=== PATIENT | male | born 1975 | race African-American/Black ===

== ENCOUNTER 2019-10-19 06:42 | Emergency (ER) | payer BC ==
[2019-10-19 07:47] LABS: Basophils % 0.5 % (0-1.3); Hematocrit 43.1 % (39.6-49.0); MPV 8.2 fL (7.6-11.3); RBC Red Blood Cell Count 4.89 M/uL (4.33-5.43)
[2019-10-19 08:11] LABS: Albumin 4.3 g/dL (3.4-5.0); Bilirubin Direct 0.4 mg/dL (0-0.2); Bilirubin Total 1.8 mg/dL (0.2-1.0); Potassium 4.6 mmol/L (3.5-5.1); Protein, Total 8.3 g/dL (6.4-8.2)
--- NOTE | 2019-10-19 08:22 | EDPHYS ---
Physician Documentation [facility] Name: Eric Wall Age: 43 yrs Sex: Male : 1975 Arrival Date: 10/19/2019 Time: 06:45 Bed 5 Private MD: ED Physician Mckinley Wayne HPI: 10/18 07:01 This 43 yrs old Black Male presents to ER via Ambulatory with complaints of Abdominal kb Pain, Shortness Of Breath. 07:01 The patient presents with abdominal pain in the right upper quadrant. Onset: The kb symptoms/episode began/occurred yesterday. The symptoms do not radiate. Associated signs and symptoms: Pertinent positives: chest pain, Pertinent negatives: nausea, vomiting, and diarrhea, fever, palpitations, shortness of breath, testicular pain, vomiting, vomiting blood. The symptoms are described as constant. Modifying factors: The symptoms are alleviated by nothing, the symptoms are aggravated by breathing deeply, movement, pressure. Severity of pain: At its worst the pain was moderate in the emergency department the pain is unchanged. The patient has not experienced similar symptoms in the past. The patient has not recently seen a physician. Historical: - Allergies: 06:58 No Known Allergies; lp1 - Home Meds: 06:58 None [Active]; lp1 - PMHx: 06:58 Hypertension; lp1 - PSHx: 06:58 Neck surgery; lp1 - Immunization history:: Adult Immunizations up to date. - Social history:: Smoking status: Patient reports the use of cigarette tobacco products, smokes one pack cigarettes per day. ROS: 06:59 Constitutional: Negative for fever, chills, and weight loss, ENT: Negative for injury, kb pain, and discharge, Neck: Negative for injury, pain, and swelling, Respiratory: Negative for shortness of breath, cough, wheezing, and pleuritic chest pain, Back: Negative for injury and pain, : Negative for injury, bleeding, discharge, and swelling, MS/Extremity: Negative for injury and deformity, Skin: Negative for injury, rash, and discoloration, Neuro: Negative for headache, weakness, numbness, tingling, and seizure. 06:59 Cardiovascular: Positive for chest pain, with cough, with movement, of the right lower chest, Negative for edema, orthopnea, palpitations, paroxysmal nocturnal dyspnea. 06:59 Abdomen/GI: Positive for abdominal pain, Negative for nausea, vomiting, and diarrhea, constipation, abdominal cramps, abdominal distension. Exam: 07:00 Constitutional: This is a well developed, well nourished patient who is awake, alert, kb and in no acute distress. Head/Face: Normocephalic, atraumatic. Neck: Trachea midline, no thyromegaly or masses palpated, and no cervical lymphadenopathy. Supple, full range of motion without nuchal rigidity, or vertebral point tenderness. No Meningismus. Chest/axilla: Normal chest wall appearance and motion. Nontender with no deformity. No lesions are appreciated. Cardiovascular: Regular rate and rhythm with a normal S1 and S2. No gallops, murmurs, or rubs. Normal PMI, no JVD. No pulse deficits. Respiratory: Lungs have equal breath sounds bilaterally, clear to auscultation and percussion. No rales, rhonchi or wheezes noted. No increased work of breathing, no retractions or nasal flaring. Back: No spinal tenderness. No costovertebral tenderness. Full range of motion. Skin: Warm, dry with normal turgor. Normal color with no rashes, no lesions, and no evidence of cellulitis. MS/ Extremity: Pulses equal, no cyanosis. Neurovascular intact. Full, normal range of motion. Neuro: Awake and alert, GCS 15, oriented to person, place, time, and situation. Cranial nerves II-XII grossly intact. Motor strength 5/5 in all extremities. Sensory grossly intact. Cerebellar exam normal. Normal gait. 07:00 Abdomen/GI: Inspection: abdomen appears normal, Bowel sounds: normal, in all quadrants, Palpation: soft, in all quadrants, moderate abdominal tenderness, in the right upper quadrant. Vital Signs: 06:54 BP 149 / 101; Pulse 95; Resp 18; Temp 98.3(O); Pulse Ox 100% on R/A; Weight 88.45 kg lp1 (R); Height 6 ft. 6 in. (198.12 cm); Pain 8/10; 06:56 BP 149 / 101; Pulse 90; Resp 18; Pulse Ox 100% on R/A; ea 07:06 BP 143 / 100; Pulse 99; Resp 16; Pulse Ox 100% ; bp 08:51 BP 145 / 97; Pulse 92; Resp 16; Temp 98.5; Pulse Ox 100% ; bp 06:54 Body Mass Index 22.53 (88.45 kg, 198.12 cm) lp1 MDM: 06:48 Patient medically screened. kb 06:59 Data reviewed: vital signs, nurses notes. Data interpreted: Pulse oximetry: on room air kb is 100 %. Interpretation: normal. 08:18 Counseling: I had a detailed discussion with the patient and/or guardian regarding: the kb historical points, exam findings, and any diagnostic results supporting the discharge/admit diagnosis, lab results, radiology results, the need for outpatient follow up, a family practitioner, a community service organization director, to return to the emergency department if symptoms worsen or persist or if there are any questions or concerns that arise at home. 10/18 06:53 Order name: Basic Metabolic Panel; Complete Time: 08:13 kb 10/18 06:53 Order name: CBC with Diff; Complete Time: 07:58 kb 10/18 06:53 Order name: Hepatic Function; Complete Time: 08:13 kb 10/18 06:53 Order name: Lipase; Complete Time: 08:13 kb 10/18 06:53 Order name: US Abdomen Limited; Complete Time: 08:47 kb 10/18 06:53 Order name: Chest Pa And Lat (2 Views) XRAY; Complete Time: 08:47 kb 10/18 06:53 Order name: IV Saline Lock; Complete Time: 07:48 kb 10/18 06:53 Order name: Labs collected and sent; Complete Time: 07:48 kb Administered Medications: 08:30 Drug: TORadol - Ketorolac 15 mg Route: IVP; Site: right antecubital; bp 08:50 Follow up: Response: Pain is decreased bp Disposition: 10/19/19 08:21 Discharged to Home. Impression: Chest pain on breathing, Upper abdominal pain, unspecified. - Condition is Stable. - Discharge Instructions: Chest Wall Pain, [id number], Abdominal Pain, Adult, [id number]. - Prescriptions for Cyclobenzaprine 10 mg Oral Tablet - take 1 tablet by ORAL route every 8 hours As needed; 21 tablet. Diclofenac Sodium 75 mg Oral Tablet, Delayed Release (E.C.) - take 1 tablet by ORAL route 2 times per day As needed; 30 tablet. - Medication Reconciliation Form, Thank You Letter, Antibiotic Education, Prescription Opioid Use form. - Follow up: Emergency Department; When: As needed; Reason: Worsening of condition. Follow up: Private Physician; When: 2 - 3 days; Reason: Recheck today's complaints, Continuance of care, Re-evaluation by your physician. Signatures: Dispatcher [employer] EDTX Gabriella Boles, JAIDA-C [employer]-Ckb Ruth Mcgee, RN RN lp1 Mainor Martel RN RN bp Corrections: (The following items were deleted from the chart) 09:00 08:21 10/19/2019 08:21 Discharged to Home. Impression: Chest pain on breathing; Upper bp abdominal pain, unspecified. Condition is Stable. Forms are Medication Reconciliation Form, Thank You Letter, Antibiotic Education, Prescription Opioid Use. Follow up: Emergency Department; When: As needed; Reason: Worsening of condition. Follow up: Private Physician; When: 2 - 3 days; Reason: Recheck today's complaints, Continuance of care, Re-evaluation by your physician. kb
--- NOTE | 2019-10-19 08:22 | ER ---
Nurse's Notes [facility] Name: Eric Wall Age: 43 yrs Sex: Male : 1975 Arrival Date: 10/19/2019 Time: 06:45 Bed 5 Private MD: Diagnosis: Chest pain on breathing;Upper abdominal pain, unspecified Presentation: 10/18 06:54 Chief complaint: Patient states: RUQ abdominal pain that began yesterday, states worse lp1 on movement; Denies any fever, cough. Coronavirus screen: Proceed with normal triage. Patient denies a cough. Patient denies measured and/or subjective temperature greater than 100.4F prior to today's visit. Patient denies travel on a cruise ship or to a country [facility] currently lists as an affected area. Patient denies contact with known and/or suspected case of COVID-19. Ebola Screen: No symptoms or risks identified at this time. Initial Sepsis Screen: Does the patient meet any 2 criteria? No. Patient's initial sepsis screen is negative. Does the patient have a suspected source of infection? No. Patient's initial sepsis screen is negative. Risk Assessment: Do you want to hurt yourself or someone else? Patient reports no desire to harm self or others. Onset of symptoms was October 18, 2019. 06:54 Method Of Arrival: Ambulatory lp1 06:54 Acuity: MARIO 3 lp1 Triage Assessment: 07:00 General: Appears in no apparent distress. comfortable, Behavior is calm, cooperative, bp appropriate for age. Pain: Complains of pain in right upper quadrant. EENT: No deficits noted. Neuro: No deficits noted. Cardiovascular: No deficits noted. Respiratory: No deficits noted. GI: Reports upper abdominal pain. : No signs and/or symptoms were reported regarding the genitourinary system. Derm: No deficits noted. Musculoskeletal: No deficits noted. Historical: - Allergies: 06:58 No Known Allergies; lp1 - Home Meds: 06:58 None [Active]; lp1 - PMHx: 06:58 Hypertension; lp1 - PSHx: 06:58 Neck surgery; lp1 - Immunization history:: Adult Immunizations up to date. - Social history:: Smoking status: Patient reports the use of cigarette tobacco products, smokes one pack cigarettes per day. Screenin:56 Abuse screen: Denies threats or abuse. Nutritional screening: No deficits noted. ea Tuberculosis screening: No symptoms or risk factors identified. Fall Risk None identified. Assessment: 06:59 General: Appears in no apparent distress. Behavior is appropriate for age. Pain: ea Complains of pain in right upper quadrant. Neuro: Level of Consciousness is awake, alert, obeys commands, Oriented to person, place, time. Respiratory: Airway is patent Respiratory effort is even, unlabored, Respiratory pattern is regular, symmetrical. Derm: Skin is pink, warm \T\ dry. 07:13 Reassessment: PT TO U/S. bp 07:30 Reassessment: PT RETURNED FROM U/S. bp 08:51 Reassessment: PT D/C HOME AMBULATORY, DX WITH CHEST WALL PAIN. bp Vital Signs: 06:54 BP 149 / 101; Pulse 95; Resp 18; Temp 98.3(O); Pulse Ox 100% on R/A; Weight 88.45 kg lp1 (R); Height 6 ft. 6 in. (198.12 cm); Pain 8/10; 06:56 BP 149 / 101; Pulse 90; Resp 18; Pulse Ox 100% on R/A; ea 07:06 BP 143 / 100; Pulse 99; Resp 16; Pulse Ox 100% ; bp 08:51 BP 145 / 97; Pulse 92; Resp 16; Temp 98.5; Pulse Ox 100% ; bp 06:54 Body Mass Index 22.53 (88.45 kg, 198.12 cm) lp1 ED Course: 06:45 Patient arrived in ED. ds1 06:47 Gabriella Boles [facility]-C [facility] kb 06:47 Mckinley Wayne MD is Attending Physician. kb 06:57 Triage completed. lp1 06:57 Patient has correct armband on for positive identification. Bed in low position. Call ea light in reach. Side rails up X2. 06:58 Arm band placed on. lp1 07:04 Mainor Martel, ULISES is Primary Nurse. bp 07:16 Chest Pa And Lat (2 Views) XRAY In Process Unspecified. EDMS 07:36 Initial lab(s) drawn, by me, sent to lab. Inserted saline lock: 20 gauge in right aa5 antecubital area, using aseptic technique. Blood collected. 07:37 US Abdomen Limited In Process Unspecified. EDMS 08:51 No provider procedures requiring assistance completed. IV discontinued, intact, bp bleeding controlled, No redness/swelling at site. Pressure dressing applied. Administered Medications: 08:30 Drug: TORadol - Ketorolac 15 mg Route: IVP; Site: right antecubital; bp 08:50 Follow up: Response: Pain is decreased bp Outcome: 08:21 Discharge ordered by . steve 08:51 Discharged to home ambulatory. bp 08:51 Condition: stable 08:51 Discharge instructions given to patient, Instructed on discharge instructions, follow up and referral plans. medication usage, Demonstrated understanding of instructions, follow-up care, medications, Prescriptions given X 2. 09:00 Patient left the ED. bp Signatures: Dispatcher [employer] EDOK Gabriella Boles, JAIDA-C [employer] MANAGER-Kathe Ruth ds1 Annia Mukherjee, RN RN aa5 Ruth Mcgee RN RN lp1 Candace La RN RN Mainor Payton RN RN bp
--- NOTE | 2019-10-19 08:34 | RAD REPORT ---
EXAM DESCRIPTION: RAD - Chest Pa And Lat (2 Views) - 10/19/2019 7:20 am CLINICAL HISTORY: CHEST PAIN Chest pain. COMPARISON: No comparisons FINDINGS: The lungs are clear. The heart is normal in size. No displaced fractures. IMPRESSION: No acute or concerning finding suspected.
--- NOTE | 2019-10-19 08:35 | RAD REPORT ---
EXAM DESCRIPTION: US - Abdomen Exam Limited - 10/19/2019 7:36 am CLINICAL HISTORY: ABD PAIN COMPARISON: No comparisons FINDINGS: The gallbladder demonstrates no gallstones. No pericholecystic fluid or gallbladder wall t hickening. The common bile duct is normal measuring 4 mm. The liver demonstrates no findings of intrahepatic biliary dilatation. IMPRESSION: Unremarkable examination.
[2019-10-19] MEDS ORDERED: KETOROLAC 30 MG/ML INJ ONE (08:52)
[2019-10-19 09:09] VITALS: O2SAT 100
[2019-10-19 09:13] VITALS: BP 145/97; TEMP 98.5
== END 2019-10-19 09:00 | disposition home or self-care (01) ==
LOC: ER 06:42
DX: R10.11 Right upper quadrant pain (principal); F17.210 Nicotine dependence, cigarettes, uncomplicated; I10 Essential (primary) hypertension
CPT/HCPCS: 36415; 71046; 76705; 80048; 80076; 83690; 85025; 96374; 99284

== ENCOUNTER 2022-02-14 23:36 | Emergency (ER) | payer BC, SELFPAY ==
--- NOTE | 2022-02-15 00:29 | ER ---
Nurse's Notes [facility] Name: Eric Wall Age: 46 yrs Sex: Male : 1975 Arrival Date: 02/14/2022 Time: 23:38 Bed 18 Private MD: Diagnosis: Candidiasis, unspecified Presentation: 02/14 23:52 Chief complaint: Patient states: "I have had itching between my buttocks and testicles. tw5 Nothing is helping it.Tonight the itching got too intense.". Coronavirus screen: Vaccine status: Patient reports receiving the 2nd dose of the covid vaccine. moderna. Ebola Screen: Patient negative for fever greater than or equal to 101.5 degrees Fahrenheit, and additional compatible Ebola Virus Disease symptoms Patient denies exposure to infectious person. Patient denies travel to an Ebola-affected area in the 21 days before illness onset. Onset: The symptoms/episode began/occurred at an unknown time. Anaphylaxis evaluation, no signs or symptoms of anaphylaxis were noted. Initial Sepsis Screen: Does the patient meet any 2 criteria? No. Patient's initial sepsis screen is negative. Does the patient have a suspected source of infection? No. Patient's initial sepsis screen is negative. Risk Assessment: Do you want to hurt yourself or someone else? Patient reports no desire to harm self or others. Onset of symptoms is unknown. 23:52 Method Of Arrival: Ambulatory tw5 23:52 Acuity: MARIO 4 tw5 Triage Assessment: 23:55 General: Appears in no apparent distress. Behavior is calm, cooperative, appropriate tw5 for age. Pain: Pain currently is 8 out of 10 on a pain scale. Historical: - Allergies: 23:55 No Known Allergies; tw5 - Home Meds: 23:55 None [Active]; tw5 - PMHx: 23:55 Hypertension; tw5 - PSHx: 23:55 None; tw5 - Immunization history:: Flu vaccine is not up to date. - Social history:: Smoking status: Patient reports the use of cigarette tobacco products, smokes one pack cigarettes per day. Screenin/20 00:58 Abuse screen: Denies threats or abuse. Nutritional screening: No deficits noted. ll3 Tuberculosis screening: No symptoms or risk factors identified. Fall Risk None identified. Assessment: 00:59 Respiratory: Airway is patent Respiratory effort is even, unlabored, Breath sounds are ll3 clear bilaterally. Vital Signs: 02/14 23:52 BP 134 / 94; Pulse 81; Resp 18; Temp 98.; Pulse Ox 100% ; Weight 86.18 kg; Height 6 ft. tw5 6 in. (198.12 cm); Pain 8/10; 23:52 Body Mass Index 21.96 (86.18 kg, 198.12 cm) tw5 ED Course: 23:38 Patient arrived in ED. bp1 23:55 Triage completed. tw5 23:55 Arm band placed on right wrist. tw5 23:57 Gabriella Boles FNP-C is PHCP. kb 23:57 Harish Garcia MD is Attending Physician. kb 02/15 00:58 Patient has correct armband on for positive identification. Placed in gown. Bed in low ll3 position. Call light in reach. Side rails up X 1. 00:58 No provider procedures requiring assistance completed. Patient did not have IV access ll3 during this emergency room visit. Administered Medications: No medications were administered Medication: 00:59 VIS not applicable for this client. ll3 Outcome: 00:28 Discharge ordered by . kb 00:58 Discharged to home ambulatory. ll3 00:58 Condition: stable 00:58 Discharge instructions given to patient, Instructed on discharge instructions, follow up and referral plans. medication usage, Demonstrated understanding of instructions, follow-up care, medications, Prescriptions given X 1. 00:59 Patient left the ED. ll3 Signatures: Gabriella Boles FNP-C FNP-Ckb [place]ia[place], Brittany bp1 Maryjo Soto tw5 Vandana Donnelly RN RN ll3
--- NOTE | 2022-02-15 00:29 | EDPHYS ---
Physician Documentation [facility] Name: Eric Wall Age: 46 yrs Sex: Male : 1975 Arrival Date: 02/14/2022 Time: 23:38 Bed 18 Private MD: ED Physician Harish Garcia HPI: 02/15 00:45 This 46 yrs old Black Male presents to ER via Ambulatory with complaints of Itching. kb 00:45 The patient's rash thought to be caused by an unknown cause. The rash is located on the kb gluteal cleft. The rash can be described as papular. Associated signs and symptoms: Pertinent positives: itching. Severity of symptoms: At their worst the symptoms were mild moderate in the emergency department the symptoms are unchanged. The patient has not experienced similar symptoms in the past. The patient has not recently seen a physician. 00:46 Onset: The symptoms/episode began/occurred 1 week(s) ago. kb Historical: - Allergies: 02/14 23:55 No Known Allergies; tw5 - Home Meds: 23:55 None [Active]; tw5 - PMHx: 23:55 Hypertension; tw5 - PSHx: 23:55 None; tw5 - Immunization history:: Flu vaccine is not up to date. - Social history:: Smoking status: Patient reports the use of cigarette tobacco products, smokes one pack cigarettes per day. ROS: 02/15 00:44 Constitutional: Negative for fever, chills, and weight loss. kb Skin: Positive for rash, of the gluteal cleft. All other systems are negative. Exam: 00:44 Constitutional: This is a well developed, well nourished patient who is awake, alert, kb and in no acute distress. Head/Face: Normocephalic, atraumatic. ENT: Moist Mucous membranes Respiratory: Respirations even and unlabored. No increased work of breathing. Talking in full sentences MS/ Extremity: Pulses equal, no cyanosis. Neurovascular intact. Full, normal range of motion. Neuro: Awake and alert, GCS 15, oriented to person, place, time, and situation. Moves all extremities. Normal gait. Psych: Awake, alert, with orientation to person, place and time. Behavior, mood, and affect are within normal limits. 00:44 Skin: rash a mild rash is noted, consistent with yeast , on the gluteal cleft. Vital Signs: 02/14 23:52 BP 134 / 94; Pulse 81; Resp 18; Temp 98.; Pulse Ox 100% ; Weight 86.18 kg; Height 6 ft. tw5 6 in. (198.12 cm); Pain 8/10; 23:52 Body Mass Index 21.96 (86.18 kg, 198.12 cm) tw5 MDM: 23:57 Patient medically screened. kb 02/15 00:44 Data reviewed: vital signs, nurses notes. Data interpreted: Pulse oximetry: on room air kb is 100 %. Interpretation: normal. Counseling: I had a detailed discussion with the patient and/or guardian regarding: the historical points, exam findings, and any diagnostic results supporting the discharge/admit diagnosis, the need for outpatient follow up, a family practitioner, to return to the emergency department if symptoms worsen or persist or if there are any questions or concerns that arise at home. Administered Medications: No medications were administered Disposition: 01:35 Co-signature as Attending Physician, Harish Garcia MD I agree with the assessment and kdr plan of care. Disposition Summary: 02/15/22 00:28 Discharge Ordered Location: Home kb Condition: Stable kb Diagnosis - Candidiasis, unspecified kb Followup: kb - With: Emergency Department - When: As needed - Reason: Worsening of condition Followup: kb - With: Private Physician - When: 2 - 3 days - Reason: Recheck today's complaints, Continuance of care, Re-evaluation by your physician Discharge Instructions: - Discharge Summary Sheet kb - Genital Yeast Infection, Male kb Forms: - Medication Reconciliation Form kb - Thank You Letter kb - Antibiotic Education kb - Prescription Opioid Use kb Prescriptions: - nystatin 100,000 unit/gram Topical ointment - apply 1 application by TOPICAL route 2 times per day; 1 tube; Refills: 0, kb Product Selection Permitted Signatures: Gabriella Boles, DUSTY SENA-Harish Johnson MD MD kdr Wood, Tiffany tw5
[2022-02-15 04:21] VITALS: BP 134/94; TEMP 98; O2SAT 100
== END 2022-02-15 00:59 | disposition home or self-care (01) ==
LOC: ER 23:36
DX: B37.9 Candidiasis, unspecified (principal); I10 Essential (primary) hypertension; F17.210 Nicotine dependence, cigarettes, uncomplicated
CPT/HCPCS: 99282